=== PATIENT | female | born 1990 | race Caucasian/White ===

== ENCOUNTER 2019-06-18 16:45 | Emergency (ER) | payer BC ==
[~2019-06-18] VITALS: Ht 167.6 cm; Wt 68.9 kg
[2019-06-18 16:48] VITALS: Ht 167.6 cm; Wt 68.9 kg
[2019-06-18 19:18] VITALS: BP 138/95
== END 2019-06-18 19:18 | disposition home or self-care (01) ==
LOC: ED 16:45
DX: Z11.3 Encounter for screening for infections with a predominantly sexual mode of transmission (principal)